=== PATIENT | female | born 1975 | race Caucasian/White ===

== ENCOUNTER 2017-10-05 04:53 | Emergency (ER) | payer SELFPAY ==
[~2017-10-05] VITALS: Ht 157.5 cm; Wt 86.6 kg
[2017-10-05 05:01] VITALS: Ht 157.5 cm; Wt 86.6 kg
[2017-10-05 05:57] VITALS: BP 150/98
== END 2017-10-05 05:57 | disposition left against medical advice (07) ==
LOC: ED 04:53
DX: Z53.21 Procedure and treatment not carried out due to patient leaving prior to being seen by health care provider (principal)